=== PATIENT | male | born 1955 | race Caucasian/White ===

== ENCOUNTER 2024-06-25 13:12 | Outpatient (AMB) | payer MEDICARE, SELFPAY ==
--- NOTE | 2024-06-25 13:25 | A.OFFVIS_ITS ---
Vital Signs 06/25/24 13:26 Height 5 ft 8.11 in Weight 148 lb 8 oz BMI 22.5 BP 118/76 Blood Pressure Location Rt brachial Position Sitting Pulse 65 Pulse Source Pulse Oximeter Pulse Oximetry (%) 96 Oxygen Delivery Method Room Air Intake Visit Reasons: chronic cough Allergies No Known Allergies Allergy (Verified 06/25/24 13:28) HPI HPI chronic cough: Details: Júnior is a pleasant 68 year old male, never smoker, with underlying migraines. He was referred by PCP for pulmonary evaluation for chronic cough. He reports productive cough with clear sputum and dyspnea on exertion that started three months ago after a viral URI.He was prescribed antibiotics, two rounds of steroids with minimal effect. He was then started on an ICS/LABA with slow improvement in symptoms. He continues to use ICS/LABA and albuterol infrequently. He also notes post nasal drip and persistent throat clearing, using flonase intermittently. He reports similar course after URI many years ago resolving after 4-6 months. He reports mild seasonal allergies, has a cat at home. Denies any recent allergy testing or daily antihistamines. He denies prior h/o asthma. He reports second hand smoke exposure. 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 He denies any pertinent family history. Review of Systems Const Denies chills, Denies excessive sweating, Denies fever(s), Denies headache(s) and Denies night sweats Eyes Denies dry eyes, Denies irritation and Denies itchy eyes ENT Reports Normal hearing present, Denies headache(s), Denies nasal congestion, Denies nasal discharge and Denies sore throat Card Denies chest pain, Denies chest pain at rest, Denies chest pain with activity, Denies claudication, Denies leg edema, Denies orthopnea and Denies paroxysmal nocturnal dyspnea Resp Denies chest congestion, Denies excessive phlegm production, Denies pain on inspiration, Denies pain with cough, Denies stridor and Denies wheezing Musc Denies myalgias Neuro Reports Normal hearing present and Denies headache(s) Endo Denies excessive sweating Armaan/Lymph Denies lymphadenopathy Aller/Immun Denies itchy eyes, Denies seasonal rhinorrhea and Denies wheezing Physical Exam Vital Signs: Last Vital Signs Pulse 65 06/25/24 13:26 BP 118/76 06/25/24 13:26 Pulse Ox 96 06/25/24 13:26 Oxygen Delivery Method Room Air 06/25/24 13:26 BMI result Body Mass Index 22.5 Const General: cooperative, healthy appearing, comfortable, no acute distress, well developed and alert Orientation/consciousness: patient oriented x3 Limitations: no limitations HEENT Head: Yes normal to inspection, Yes normocephalic and Yes atraumatic Ears: hearing grossly normal bilaterally and external ears normal Eyes General: appearance normal, both eyes and all related structures Eyelids: Yes eyelids normal Sclerae: sclerae normal EOM: EOMs intact bilaterally Neck Neck: Yes normal visual inspection and Yes no lymphadenopathy Lymphatic: no lymphadenopathy noted Chest Chest palpation & inspection: normal inspection of the chest Resp Other: persistent throat clearing and dry cough throughout visit. Effort & Inspection: normal respiratory effort, able to speak in complete sentences, no audible wheezes, no stridor, not tachypneic, no tripod positioning and no use of accessory muscles Auscultation: clear to auscultation bilaterally Cardio Jugular venous distension: no JVD Rate: regular rate Rhythm: regular rhythm Skin Other: warm, dry General skin exam: no rashes or lesions noted Neuro General: patient oriented x3 Cranial nerves: Yes Normal hearing present Cognition (Neuro): normal cognition Gait exam (Neuro): Normal gait present Extrem General: Yes normal to inspection, Yes capillary refill normal, Yes no clubbing, cyanosis or edema and Yes no pedal edema Psych Appearance: grossly normal and well kempt Speech and movement: Normal speech and movement present and Clear speech present Affect: normal affect Attitude: cooperative Thought process: Normal thought process present Thought content: Normal thought content present Insight: Good insight present (Psych) Judgement: Good judgement present (Psych) Results Reviewed Results Reviewed: RESULT: CT Angio Chest EXAMINATION: CT Angio Chest INDICATION: Reason: Other:; r o PE; Clinical Question(s): Other: TECHNIQUE: Spiral CTA of the chest was performed after rapid IV contrast administration without cardiac gating, triggered by an RAE on the main pulmonary artery. Images are formatted in multiple planes using 2-D multiplanar and 3-D maximum intensity projection. 75 cc of Isovue 300 was administered intravenously. Weight-based protocol using automatic tube modulation was used to optimize exposure parameters. COMPARISONS: None. ANGIOGRAPHIC FINDINGS: No pulmonary embolism to the subsegmental level. Normal caliber pulmonary arteries. The aorta is essentially unopacified but the descending aorta is dilated measuring up to 4.1 cm. The aortic root also appears dilated. NON-ANGIOGRAPHIC FINDINGS: Convention Services Director View Findings, Lines and Tubes: None. Trachea and Airways: Patent without evidence of tracheal or endobronchial lesion. Lungs and Pleura: Clear lungs. No effusion or pneumothorax. Mediastinum and valentino: No mass or hematoma. No mediastinal or hilar lymphadenopathy. No esophageal abnormality. Heart: Heart is normal in size. No pericardial effusion. Chest Wall Soft Tissues: Normal. Diaphragm and upper abdomen: Hepatic cyst noted. Bones: No acute abnormality. IMPRESSION: No evidence of acute pulmonary embolism. Dilatation of the descending thoracic aorta and aortic root which can be assessed with echocardiography. An actionable message (Yellow) has been communicated via the [employer] system on 06/12/2024 8:52 PM, Message ID [id number]. WSN: [id number] Ordering Physician: René Aguiar Reason For Exam r/o PE;Other: Assessment & Plan Assessment & Plan (1) Chronic cough: Code(s): R05.3 - Chronic cough Category: Medical (2) Environmental allergies: Code(s): Z91.09 - Other allergy status, other than to drugs and biological substances Category: Medical Plan Júnior presents for pulmonary evaluation for chronic cough, now slowly improving since initiating ICS/LABA. He does note using daily however inconsistently using twice daily. Encouraged to use BID. Cough more likely related to post viral cough however will send for PFT and RAST to assess for an obstructive defect or allergic component contributing to symptoms. Also recommended trialing ipratropium nasal spray. Will obtain CTA images from [facility], unremarkable per report. All questions were answered and patient is in agreement of plan. Will follow up after PFT or sooner if needed. Orders: Orders Complete Blood Count Auto Diff Today Z91.09 - Other allergy status, other than to drugs and biological substances Immunoglobulin E Today Z91.09 - Other allergy status, other than to drugs and biological substances Resp Allergy Profile Region I Today Z91.09 - Other allergy status, other than to drugs and biological substances PFT pulmonary function test Today R05.3 - Chronic cough Medications: New ipratropium bromide administer into each nostril 2 sprays intranasal BID 30 mL 3RF Coding Level of Care Code New Pt Level 4 (58726) Diagnoses Chronic cough R05.3 Environmental allergies Z91.09
[2024-06-25 13:26] VITALS: BP 118/76; PULSE 65; O2SAT 96; BMI 22.5
--- OUTSIDE RECORDS SUMMARY | 2024-06-26 21:25 | XMS_ITS | Continuity of Care Document ---
Author Organization [facility] ter Address [address] [place] [address]- Care Team Providers Care Bait Packer Name Role Phone René Aguiar MD Primary Care Physician Encounter 06/07/24 - 06/08/[address] [address] Attending Physician: Not on Staff, Attending MD Referring Physician: Not on Staff, Referring MD Encounter Type: [facility] Allergies, Adverse Reactions, Alerts No Known Allergies Immunizations Given and Recorded Vaccine Date Status Refusal Reason influenza virus vaccine, inactivated 05/04/23 Jose Guadalupe rded influenza virus vaccine, inactivated 05/09/22 Jose Guadalupe rded influenza virus vaccine, inactivated 05/18/21 Jose Guadalupe rded influenza virus vaccine, inactivated 04/20/20 Jose Guadalupe rded influenza virus vaccine, inactivated 04/24/19 Jose Guadalupe rded influenza virus vaccine, inactivated 04/26/18 Jose Guadalupe rded influenza virus vaccine, inactivated 05/10/17 Jose Guadalupe rded SARS-CoV-2(COVID-19)mRNA-LNP vac([id number]) 05/04/23 Recorded pneumococcal 23-valent vaccine 10/19/22 Given Typhoid Vaccine, Inactivated 10/13/22 Recorded Hepatitis A Adult Vaccine 08/23/22 Recorded [id number] bivalent booster vax 08/21/22 Recorded SARS-CoV-2 (COVID-19) mRNA-1273 vaccine 11/12/21 R ecorded SARS-CoV-2 (COVID-19) mRNA-1273 vaccine 05/21/21 R ecorded SARS-CoV-2 (COVID-19) mRNA-1273 vaccine 08/05/20 R ecorded SARS-CoV-2 (COVID-19) mRNA-1273 vaccine 07/08/20 R ecorded pneumococcal 13-valent vaccine 02/17/21 Recorded zoster vaccine, inactivated 09/27/19 Recorded zoster vaccine, inactivated 06/24/19 Recorded Medications predniSONE 20 mg oral tablet See Instructions, 3 tablets daily for 3 days and then 2 tablets daily for 4 days., # 17 tablet, 0 Refills, Maintenance, 05/28/24 10:10:00 AM EST, [facility]/pharmacy #[id number], Partial fill upon patient requestif the prescription is for a schedule II opioid drug., 173, cm, 05/28/24 9:40:00 EST, Height, 64, kg, 05/12/23 9:33:00 EDT, Dry Weight Start Date: 05/28/24 Status: Ordered Quantity: 17.0 Unit: tablet Repeat number: 1 Indication: Chronic cough rizatriptan 10 mg oral tablet See Instructions, TAKE 1 TABLET BY MOUTH EVERY DAY NEEDED FOR MIGRAINE, MAY REPEAT DOSE EVERY 2 HOURS UP TO A MAX OF 3. DO NOT TAKE WITHIN 24 HOURS OF A DIFFERENT TRIPTAN MED, # 6 tablet, 3 Refills, Maintenance, 05/23/24 12:12:00 PM EST, [facility] STORE [id number], 173, cm, 05/12/24 9:47:00 EDT, Height, 64,kg, 05/12/23 9:33:00 EDT, Dry Weight Start Date: 05/23/24 Status: Ordered Quantity: 6.0 Unit: tablet Repeat number: 1 Splint See Instructions, # 1 each, Maintenance, use for left wrist.Avoid using left wrist until pain and swelling improves, 01/03/22 10:04:00 AM EDT, Supply, 173, cm, 01/03/22 9:40:00 EDT, Height Start Date: 01/03/22 Status: Ordered Quantity: 1.0 Unit: each Repeat number: 1 Indication: Pain in left wrist Problem List Condition Confirmation Course Effective Dates Status H ealth Status Informant Chronic cough Confirmed Active Herpes zoster Confirmed Active High grade prostatic intraepithelial neoplasia Confirmed Active Migraine Confirmed Active Preventative health care Confirmed Active Screening for diabetes mellitus Confirmed Active Results Radiology Reports * Exam Date Time Procedure Performing Provider Status 06/07/24 8:49 AM MR Prostate W+W/O Co ntrast 3D Reformat Auth (Verified) Notes: (MR Prostate W+W/O Contrast 3D Reformat) Reason For Exam: Elevated prostate specific antigen [PSA];Elevated prostate specific antigen [PSA] RESULT: MR Prostate W+W/O Contrast 3D Reformat [facility] VISIT NUMBER :[id number] Patient Name: Breanna Lowe Date of : 1955 Date of Exam: 06-07-2024 Referring Physician: Bari Palencia [facility] [address] [facility], [address] [place] [address] Exam: MR Prostate (C-/C+) with 3D reformat CPT 87539, 55083 Room Description: [facility] 3T HISTORY: 68-year-old male with elevated PSA. PSA of 7. Prostate biopsy from 2016 showed small focus of Pramod 6 adenocarcinoma on surveillance. Biopsy from 2020 showed a very small focus of Pramod 7 adenocarcinoma in one core. Another surveillance biopsy showed no evidence of malignancy. TECHNIQUE: Noncontrast and contrast-enhanced MRI of the prostate gland was performed utilizing a body matrix coil and PROSTATE PROTOCOL. Dynamic pre- and postcontrast imaging was utilized. 14 cc of Dotarem contrast given IV. High resolution axial, sagittal, and coronal FSE T2, axial FSE T1, axial DWI, axial pre and multiphase dynamic postcontrast 3D FSPGR T1 pulse sequences were performed. Postprocessing on an independent workstation included creation of a 3D rotational prostate segmentation volume analysis, 3D lesion analysis, subtraction images, multiplanar reformatted images, wash-in and wash-out maps as well as computer aided detection (CAD) NexantaCAD software. Findings are reported using Prostate Imaging Reporting and Data System (PI-RADS) version 2.1. COMPARISON: None. FINDINGS: 3D processing calculated prostate volume is 95 cc. CENTRAL ZONE: No focal lesion. PERIPHERAL ZONE: Evaluation of posterior peripheral zone degraded by artifact from rectal gas. Geographic areas of mild T2 hypointensity within the peripheral zone without associated restricted diffusion are likely sequela of prior inflammation. Peripheral zone lesion: No suspicious focal lesion. TRANSITION ZONE: Severe transition zone enlargement with bilateral T2 hyperintense as well as T2 hypointense well circumscribed nodules, some of the latter exhibiting hyperenhancement and washout likely representing stromal hyperplasia. Some T1 hyperintensity within one of the right base nodules likely due to blood products. Transition zone lesion #1: A lesion is visualized in the transition zone RIGHT anterior at the base (1a) seen on image 19 series 5 which measures 2.3 x 1.2 cm. DWI characteristics are described as Focal (discrete and different from the background) hypointense on ADC and/or focal hyperintense on high b-value DWI; may be markedly hypointense on ADC or markedly hyperintense on high b-value DWI, but not both, correlating with a DWI-ADC score of 3. T2-Weighted characteristics are described as Heterogeneous signal intensity with obscured margins correlating with a T2W score of 3. There is no evidence of enhancement. Overall PI-RADS score for this lesion is 3: intermediate (the presence of clinically significant cancer is equivocal). Prostate capsule: There is no evidence of capsular invasion. SEMINAL VESICLES: The seminal vesicles are normal. LYMPH NODES: No enlarged pelvic or inguinal lymph nodes. VESSELS: Major pelvic vessels demonstrate normal enhancement. URINARY BLADDER: Unremarkable. PELVIS PERITONEAL CAVITY: No free fluid. COLON AND RECTUM: Moderate diverticulosis of the sigmoid colon without acute diverticulitis. BONES AND SOFT TISSUES: Spine degenerative changes. No suspicious osseous lesion. No evidence of hernia. OTHER: Partially imaged cystic lesion in the right hemiabdomen, probably a renal cyst (10:1). IMPRESSION: 1. No definite multiparametric MRI evidence of clinically significant prostate cancer. Indeterminate 2.3 cm lesion anterior transition zone of prostate base. PI-RADS v2.1 Category 3: Intermediate (Clinically significant cancer is equivocal). 2. No evidence of adenopathy, capsule, or seminal vesicle invasion. No suspicious osseous lesion. 3. 3D processing calculated prostate volume is 95 cc. REFERENCE: PI-RADS Version 2.1 Assessment Categories: Category 1: Very low - Clinically significant cancer is highly unlikely. Category 2: Low - Clinically significant cancer is unlikely. Category 3: Intermediate - Clinically significant cancer is equivocal. Category 4: High - Clinically significant cancer is likely. Category 5: Very High - Clinically significant cancer is highly likely. PI-RADS Version 2.1 Definition of Clinically Significant Cancer: Tumor with a Pramod score of 7 or more (either 4 + 3 or 3 + 4 with a prominent Patterson 4 com?ponent) and/or volume greater than 0.5 cm3 and/or extraprostatic extension. Electronically Signed By: Eric Douglas MD Dictated By: Not on Staff , LIT ALVAREZ Dictated Date/Time: 06/07/24 10:52 a Reviewed By: Not on Staff , LIT ALVAREZ Signed By: Not on Staff , LIT ALVAREZ Signed Date/Time: 06/07/24 10:52 am Transcribed By: JAN Transcribed Date/Time: 06/07/24 10:52 am Social History Social History Type Response Smoking Status Never (less than 100 in lifetime) entered on: 10/19/22 Sex Sex Representation Male (finding) Patient Care team information Care Team Personnel Name: Stefania ALVAREZ, René Lee Position: [facility] Physician - Primary Care Member Role: PCP Address: [address] [place] [address] Telecom: Care Team Related Persons Name: CORY RAMIREZ Name: PHILLIP PLAZA Insurance Providers Guarantor name: BREANNA LOWE Health Plan Information #: 1 Payer: [employer] ADV PPO Member Number: NA Policy Number: NA Group Number: NA
--- OUTSIDE RECORDS SUMMARY | 2024-06-26 21:25 | XMS_ITS | Continuity of Care Document ---
Author Organization [facility] Address [address] [facility] [place] [address]- Care Team Providers Care Large Engine Assembler Name Role Phone René Aguiar MD Primary Care Physician Encounter 06/11/24 - 06/18/24 [facility] [address] [facility], [address] [place], [place] [address] Attending Physician: René Aguiar MD Admitting Physician: René Aguiar MD Referring Physician: René Aguiar MD Encounter Type: OutPatient One Time Allergies, Adverse Reactions, Alerts No Known Allergies [...] vaccine, inactivated 05/10/17 Jose Guadalupe rded SARS-CoV-2(COVID-19)mRNA-LNP vac([id number]) 05/04/23 Recorded pneumococcal 23-valent vaccine 10/19/22 Given Typhoid Vaccine, Inactivated 10/13/22 Recorded Hepatitis A Adult Vaccine 08/23/22 Recorded [id number] bivalent booster vax 08/21/22 Recorded SARS-CoV-2 (COVID-19) mRNA-1273 vaccine 11/12/21 R ecorded SARS-CoV-2 (COVID-19) mRNA-1273 vaccine 05/21/21 R ecorded SARS-CoV-2 (COVID-19) mRNA-1273 vaccine 08/05/20 R ecorded SARS-CoV-2 (COVID-19) mRNA-1273 vaccine 07/08/20 R ecorded pneumococcal 13-valent vaccine 02/17/21 Recorded zoster vaccine, inactivated 09/27/19 Recorded zoster vaccine, inactivated 06/24/19 Recorded Medications fluticasone-salmeterol 100 mcg-50 mcg inhalation powder 1, inhalation, Inhalation, 2 times a day, rinse mouth and throat after use, # 1 each, Refills 1, Tot. Refills 1, Maintenance, 06/17/24 2:10:00 PM EST, Powder, Route to Pharmacy Electronically, [id number], [facility]/pharmacy #[id number], 173, cm, 06/14/24 8:04:00 EST, Height, 64, kg, 05/12/23 9:33:00 EDT, Dry Weight Start Date: 06/17/24 Status: Ordered Quantity: 1.0 Unit: each Repeat number: 2 rizatriptan 10 mg oral tablet See Instructions, TAKE 1 TABLET BY MOUTH EVERY DAY NEEDED FOR MIGRAINE, MAY REPEAT DOSE EVERY 2 HOURS UP TO A MAX OF 3. DO NOT TAKE WITHIN 24 HOURS OF A DIFFERENT TRIPTAN MED, # 6 tablet, 3 Refills, Maintenance, 05/23/24 12:12:00 PM EST, [facility] STORE [id number], 173, cm, 05/12/24 9:47:00 EDT, Height, 64,kg, [...] Effective Dates Status H ealth Status Informant Aortic root dilatation Confirmed Active Chronic cough Confirmed Active Dilatation of thoracic aorta Confirmed Active Herpes zoster Confirmed Active High grade prostatic intraepithelial neoplasia Confirmed Active Migraine Confirmed Active Preventative health care Confirmed Active Screening for diabetes mellitus Confirmed Active Results Radiology Reports * Exam Date Time Procedure Performing Provider Status 06/11/24 8:23 AM Chest 2 Views Frontal and Lat Leora Payan; Carlos (Verified) Notes: (Chest 2 Views Frontal and Lat) Reason For Exam: Cough RESULT: Chest 2 Views Frontal and Lat Chest 2 Views Frontal and Lat Reason: Cough; Clinical Question(s): Other: COMPARISON: Multiple prior chest radiographs with the most recent dated 05/12/2024. FINDINGS: LINES AND TUBES: None. LUNGS AND PLEURA: Clear lungs. Normal pulmonary vascularity. No pleural effusion. No pneumothorax. HEART, MEDIASTINUM AND USHA: Heart is normal in size. Normal mediastinal and hilar contour. BONES AND SOFT TISSUES: No acute abnormality. IMPRESSION: No acute abnormality. No change. WSN: [id number] Ordering Physician: René Aguiar Dictated By: Mark Steen MD, V Dictated Date/Time: 06/11/24 8:35 am Reviewed By: Mark Steen MD, V Signed By: Mark Steen MD, V Signed Date/Time: 06/11/24 8:35 am Transcribed By: KOBI Transcribed Date/Time: 06/11/24 8:34 am Social History Social History Type Response Smoking Status Never (less than 100 in lifetime) entered on: 10/19/22 Sex Sex Representation Male (finding) Patient Care team information Care Team Personnel Name: René Aguiar MD Position: S Physician - Primary Care Member Role: PCP Address: [address] [place] [address] Telecom: Care Team Related Persons Name: CORY RAMIREZ Name: PHILLIP PLAZA Insurance Providers Guarantor name: BREANNA CHEEK Health Plan Information #: 1 Payer: [employer] ADV PPO Member Number: [id number] Policy Number: NA Group Number: [id number] Health Plan Information #: 2 Payer: [employer] ADV PPO Member Number: [id number] Policy Number: NA Group Number: [id number]
== END 2024-06-25 18:40 | disposition home or self-care (01) ==
PROVIDERS: PCP Family Medicine; Visit Provider Nurse Practitioner Family
DX: R05.3 Chronic cough (principal); Z91.09 Other allergy status, other than to drugs and biological substances
CPT/HCPCS: 99204

== ENCOUNTER → 2024-06-25 13:12 | Outpatient (BNVA) | payer MEDICARE, SELFPAY | PROVIDERS: PCP Family Medicine; Visit Provider Nurse Practitioner Family | DX: R05.3 Chronic cough (principal); Z91.09 Other allergy status, other than to drugs and biological substances | CPT/HCPCS: 99202 ==

== ENCOUNTER 2024-06-25 14:20 | Outpatient (REF) | payer MEDICARE, SELFPAY ==
[2024-06-25 17:41] LABS: MANUAL DIFF FLAG NO
[2024-06-25 17:43] LABS: Basophils Absolute Auto 0.1 X10*3/uL (0.0-0.2); Basophils Percent Auto 1.3 % (0-2); Eosinophils Absolute Auto 0.4 X10*3/uL (0.0-0.4); Eosinophils Percent Auto 5.7 % (0-4); Hematocrit 43.2 % (42.0-52.0); Hemoglobin 14.5 g/dl (14.0-18.0); Imm Gran Abs Auto 0.02 X10*3/uL (0.00-0.03); Imm Gran Pct Auto 0.3 % (0.0-0.4); Lymphocytes Absolute Auto 1.2 X10*3/uL (1.2-4.9); Lymphocytes Percent Auto 17.6 % (20-40); Mean Corpuscular HGB Conc 33.6 g/dl (31.0-36.0); Mean Corpuscular Hemoglobin 29.5 pg (27.0-33.0); Mean Corpuscular Volume 87.8 fL (80.0-98.0); Mean Platelet Volume 9.3 fL (9.4-12.4); Monocytes Percent Auto 13.8 % (2-11); Neutrophils Absolute Auto 4.3 x10*3/uL (2.0-8.3); Neutrophils Percent Auto 61.3 % (45-73); Platelet Count 345 X10*3/uL (160-400); Red Blood Count 4.92 X10*6/uL (4.60-5.80); Red Cell Distribution Width 12.4 % (11.0-16.0); White Blood Count 7.1 X10*3/uL (4.8-10.8)
[2024-06-27 21:18] LABS: Class Alternaria alternata 0; Class Aspergillus fumigatus 0; Class Bermuda Grass 0; Class Birch 0; Class Cat Dander 0; Class Cladosporium herbarum 0; Class Cockroach 0; Class Common Ragweed 0; Class Cottonwood 0; Class Derm. pterony 0; Class Dermatophagoides farinae 0; Class Dog Dander 0; Class Elm 0; Class Maple Box Elder 0; Class Mountain Cedar 0; Class Mouse Urine Protein 0; Class Mugwort 0; Class Oak 0; Class Penicillium crysogenum 0; Class Rough Pigweed 0; Class Sheep Sorrel 0; Class Sycamore 0; Class Timothy Grass 0; Class Walnut Tree 0; Class White Ash 0; Class White Mulberry 0; D001 IgE D pteronyssinus <0.10 kU/L; D002 - IgE D farinae <0.10 kU/L; E001 - IgE Cat Dander <0.10 kU/L; E005 - IgE Dog Dander <0.10 kU/L; E072-IgE Mouse Urine <0.10 kU/L; G002 IgE Bermuda Grass <0.10 kU/L; G006 - IgE Timothy Grass <0.10 kU/L; I006-IgE Cockroach, German <0.10 kU/L; Immunoglobulin E 22 kU/L (<OR=114); M001 IgE Penicillium chrysogen <0.10 kU/L; M002 - IgE Cladosporium herbar <0.10 kU/L; M003 - IgE Aspergillus fumigat <0.10 kU/L; M006 - IgE Alternaria alternat <0.10 kU/L; T001 IgE Maple/Box Elder <0.10 kU/L; T003 IgE Common Silver Birch <0.10 kU/L; T006 - IgE Cedar, Mountain <0.10 kU/L; T007 - IgE Oak, White <0.10 kU/L; T008 IgE Elm, American <0.10 kU/L; T010 - IgE Walnut <0.10 kU/L; T011 - IgE Maple Leaf Sycamore <0.10 kU/L; T014 - IgE Cottonwood <0.10 kU/L; T015 - IgE Ash, White <0.10 kU/L; T070 - IgE White Mulberry <0.10 kU/L; W001 - IgE Ragweed, Short <0.10 kU/L; W006 - IgE Mugwort <0.10 kU/L; W014 IgE Pigweed, Common <0.10 kU/L; W018 IgE Sheep Sorrel <0.10 kU/L
== END 2024-06-25 14:21 | disposition home or self-care (01) ==
LOC: HO.WFDLDS 14:20
PROVIDERS: Visit Provider Nurse Practitioner Family
DX: Z91.09 Other allergy status, other than to drugs and biological substances (principal); R05.3 Chronic cough
CPT/HCPCS: 36415; 82785; 85025; 86003

== ENCOUNTER 2024-08-07 07:28 | Outpatient (REF) | payer MEDICARE, SELFPAY ==
--- NOTE | 2024-08-07 07:50 | PFT_ITS ---
Indication: Cough Spirometry [FEV1 to FVC 80%; FEV1 3.91 L; FVC 4.89 L. no significant response to bronchodilators noted.] Lung Volumes [Total lung capacity 105% predicted; residual volume 89% predicted] Diffusion Capacity [DLCO 92% predicted] Comparisons [none] Interpretation [No obstructive nor restrictive ventilatory defects identified. No significant response to bronchodilators noted. Lung volumes on normal. Diffusing capacity also within normal limits. If asthma is differential methacholine challenge may be helpful for assessing for hyperreactive airways. Clinical correlation warranted.] MTDD
== END 2024-08-07 07:29 | disposition home or self-care (01) ==
LOC: HO.RESP 07:28
PROVIDERS: PCP Family Medicine; Visit Provider Nurse Practitioner Family
DX: R05.3 Chronic cough (principal)
CPT/HCPCS: 94010; 94640; 94727; 94729